=== PATIENT | male | born 1980 | race Caucasian/White ===

== ENCOUNTER 2017-06-15 22:40 | Emergency (ER) | payer OTHER ==
--- NOTE | 2017-06-16 01:40 | ED ---
Upper Extremity Pain - HPI Summary HPI Summary: Patient presents to the ED with a left little finger deformity and pain after jamming it while playing soccer. He is unable to move at the PIP joint. There is swelling and slight ecchymosis over the PIP joint. He denies any previous injury to the finger. He is otherwise healthy and takes no medications. Denies numbness, tingling, or temperature changes to the area. Vital signs are stable and he denies any other injuries. Pain is rated a 2 out of 10 and throbbing. - History of Current Complaint Chief Complaint: EDExtremityUpper Stated Complaint: LF FINGER INJURY Time Seen by Provider: 06/15/17 22:57 Hx Obtained From: Patient Onset/Duration: Started Hours Ago Timing: Constant Severity Initially: Moderate Severity Currently: Moderate Pain Location: Finger Character: Aching Aggravating Factor(s): Lifting, Flexion, Extension Alleviating Factor(s): Rest, Ice Associated Signs & Symptoms: Positive: Negative Related History: Dominant Hand Right - Risk Factors Non-Orthopedic Risk Factor: Negative DVT Risk Factors: Negative Septic Arthritis Risk Factor: Negative Compartment Syndrome Risk Factors: Pain - Allergies/Home Medications Allergies/Adverse Reactions: Allergies Allergy/AdvReac Type Severity Reaction Status Date / Time No Known Allergies Allergy Verified 06/16/17 00:16 PMH/Surg Hx/FS Hx/Imm Hx Previously Healthy: Yes - Immunization History Date of Tetanus Vaccine: utd Date of Influenza Vaccine: none Hx Pertussis Vaccination: No Immunizations Up to Date: Unable to Obtain/Confirm Infectious Disease History: No Infectious Disease History: Denies: Traveled Outside the [place] in Last 30 Days - Social History Occupation: Employed Full-time Lives: With Family Alcohol Use: Daily Hx Substance Use: No Substance Use Type: Reports: None Smoking Status (MU): Never Smoked Tobacco Review of Systems Constitutional: Negative Negative: Fever, Chills, Fatigue, Skin Diaphoresis ENT: Negative Cardiovascular: Negative Positive: no symptoms reported, see HPI Positive: Arthralgia, Myalgia Positive: Bruising - slight bruising to the PIP joint of the left fifth finger Neurological: Negative All Other Systems Reviewed And Are Negative: Yes Physical Exam Triage Information Reviewed: Yes Vital Signs On Initial Exam: Initial Vitals Temp Pulse Resp BP Pulse Ox 97.9 F 63 18 134/74 97 06/15/17 22:42 06/15/17 22:42 06/15/17 22:42 06/15/17 22:42 06/15/17 22:42 Vital Signs Reviewed: Yes Appearance: Positive: Well-Appearing, Well-Nourished Skin: Positive: Warm, Skin Color Reflects Adequate Perfusion Head/Face: Positive: Normal Head/Face Inspection Eyes: Positive: EOMI, WINNIE, Conjunctiva Clear Neck: Positive: Supple, No Lymphadenopathy Respiratory/Lung Sounds: Positive: Clear to Auscultation, Breath Sounds Present Cardiovascular: Positive: RRR, Pulses are Symmetrical in both Upper and Lower Extremities Musculoskeletal: Positive: Pain @ - Left fifth finger Neurological: Positive: Speech Normal Psychiatric: Positive: Affect/Mood Appropriate AVPU Assessment: Alert Diagnostics - Vital Signs Vital Signs Temp Pulse Resp BP Pulse Ox 06/15/17 22:42 97.9 F 63 18 134/74 97 - Laboratory Lab Statement: Any lab studies that have been ordered have been reviewed, and results considered in the medical decision making process. Course/Dx - Course Course Of Treatment: During the course of treatment, x-rays obtained which show a laterally dislocated PIP joint. 1.5 mils lidocaine without epi used as a digital block with good effect. Reduction obtained. Postreduction x-rays obtained which show reduction was successful. Splint placed and will remain for 5 days. - Diagnoses Differential Diagnosis/HQI/PQRI: Positive: Fracture (Closed), Other - Dislocation Provider Diagnoses: Dislocation of fifth finger, metacarpal joint, proximal, left, closed Discharge - Discharge Plan Condition: Stable Disposition: HOME Patient Education Materials: Finger Dislocation (ED) Referrals: [facility] - Vasiliy PERSON [Primary Care Provider] - Additional Instructions: Keep splint on for 5 days If you're still feeling pain or feel that he pink he is unstable you May argelia tape it to the fourth finger Ibuprofen 600 mg 3 times daily for any inflammation and pain
[2017-06-16 02:05] VITALS: BP 112/71
--- NOTE | 2017-06-16 08:05 | RAD ---
INDICATION: Left small finger injury playing soccer COMPARISON: None. TECHNIQUE: 4 views of the left hand were obtained. FINDINGS: There is ulnar and dorsal dislocation at the proximal interphalangeal joint of the left small finger. Remaining visualized bones are intact and appropriately aligned. IMPRESSION: As above
--- NOTE | 2017-06-16 08:16 | RAD ---
INDICATION: Status post reduction of dislocated left small finger proximal interphalangeal joint. COMPARISON: Left hand radiograph dated June 15, 2017 TECHNIQUE: 3 views of the left hand were obtained. FINDINGS: There has been interval reduction of the previously dislocated left small finger proximal interphalangeal joint. On the lateral view there is a minimally displaced fracture involving the proximal and palmar corner of the left small finger middle phalanx. The remaining bones are intact and properly aligned. IMPRESSION: Interval reduction of dislocated left small finger proximal interphalangeal joint with avulsion fracture at the proximal and palmar corner of the left small finger middle phalanx.
== END 2017-06-16 02:03 | disposition home or self-care (01) ==
LOC: ED 22:40
DX: S63.267A Dislocation of metacarpophalangeal joint of left little finger, initial encounter (principal); W22.8XXA Striking against or struck by other objects, initial encounter; Y93.66 Activity, soccer; Y92.9 Unspecified place or not applicable
CPT/HCPCS: 26600; 99282